=== PATIENT | male | born 1965 | race Caucasian/White ===

== ENCOUNTER 2024-01-09 16:03 | Outpatient (CLI) | payer OTHER | END 2024-01-09 16:04 | disposition home or self-care (01) | LOC: BICRAD 16:03 | PROVIDERS: ATTEND Preventive Medicine Occupational Medicine | DX: M54.50 Low back pain, unspecified (principal); M41.9 Scoliosis, unspecified; M47.816 Spondylosis without myelopathy or radiculopathy, lumbar region; M47.817 Spondylosis without myelopathy or radiculopathy, lumbosacral region; M48.061 Spinal stenosis, lumbar region without neurogenic claudication; M48.07 Spinal stenosis, lumbosacral region; I70.0 Atherosclerosis of aorta | CPT/HCPCS: 72100 ==